=== PATIENT | male | born 1950 | race African-American/Black ===

== ENCOUNTER 2020-04-30 05:54 | Emergency (ER) | payer MEDICAID, OTHER ==
[~2020-04-30] VITALS: Ht 170.2 cm; Wt 72.7 kg
[~2020-04-30 05:54] MED LIST: ATENOLOL PO; [UNRECOGNIZED DRUG - REMARK]
[2020-04-30 06:03] VITALS: BP 132/80
== END 2020-04-30 06:36 | disposition home or self-care (01) ==
LOC: EMS 05:56
DX: I10 Essential (primary) hypertension (principal); Z20.822 Contact with and (suspected) exposure to COVID-19; F12.90 Cannabis use, unspecified, uncomplicated
CPT/HCPCS: 99283; U0003

== ENCOUNTER 2021-12-10 10:17 | Emergency (ER) | payer OTHER ==
[~2021-12-10] VITALS: Ht 170.2 cm; Wt 73.6 kg
[2021-12-10 10:18] VITALS: BP 148/82
[2021-12-10] MEDS ORDERED: AMLO2.5T96 PO (10:26)
[2021-12-10] MEDS ORDERED: ATEN-73 PO (10:26)
== END 2021-12-10 10:56 | disposition home or self-care (01) ==
LOC: EMS 10:19
DX: S46.212A Strain of muscle, fascia and tendon of other parts of biceps, left arm, initial encounter (principal); F10.20 Alcohol dependence, uncomplicated; F12.90 Cannabis use, unspecified, uncomplicated; I10 Essential (primary) hypertension; X58.XXXA Exposure to other specified factors, initial encounter; Y93.89 Activity, other specified; Y92.89 Other specified places as the place of occurrence of the external cause; Y99.8 Other external cause status; Z85.46 Personal history of malignant neoplasm of prostate
CPT/HCPCS: 99282; Z7502